=== PATIENT | male | born 1930 | race Caucasian/White ===

== ENCOUNTER 2016-11-11 11:41 | Inpatient (IN) | payer OTHER ==
[2016-11-11] VITALS (10 sets, daily range): BP systolic 108–158; BP diastolic 57–84
[~2016-11-11] VITALS: Ht 170.2 cm; Wt 62.1 kg
[~2016-11-11 11:41] MED LIST: ALBU2.5V7 NEB; AMLO2.5T2 PO; ASPI81TA31 PO; BENZ200C53 PO; FLUT9.9S NS; GUAI600T53 PO; HYDR-3326 PO; IPRA0.2S6 NEB; LOSA50TA3 PO; LOVA10TA PO; Metoprolol Tartrate PO; OMEP20TA20 PO; PYRI60TA PO
--- NOTE | 2016-11-11 11:55 | NUR ---
Code sepsis activated per protocol and Dr. Lenny farooq.
[2016-11-11] MEDS ORDERED: VANCOMYCIN IV 1,000 MG in IV DEXTROSE 5% 250 ML IV ONE (12:00)
[2016-11-11] MEDS ORDERED: IV NORMAL SALINE 1000 ML BAG IV ONE ×2 (12:00→12:15)
[2016-11-11] MEDS ORDERED: LEVOFLOXACIN 750MG/D5W 150 ML IV ONE (12:00)
[2016-11-11] MEDS ORDERED: PIPERACILLIN SODIUM/TAZOBACTAM 3.375 G in IV DEXTROSE 5% 50 ML IV ONE (12:00)
[2016-11-11] MEDS ORDERED: METR500T PO (12:07)
[2016-11-11] MEDS ORDERED: LOVA20TA2 PO (12:07)
[2016-11-11] MEDS ORDERED: CEFP100T9 PO (12:07)
[2016-11-11] MEDS ORDERED: PYRI180T PO (12:07)
[2016-11-11] MEDS ORDERED: ATEN25TA PO (12:07)
[2016-11-11] MEDS ORDERED: OMEP20TA5 PO (12:07)
[2016-11-11] MEDS ORDERED: ACET-2154 PO (12:07)
[2016-11-11] MEDS ORDERED: MYCO500T PO (12:07)
[2016-11-11] MEDS ORDERED: PSYL3.4P6 PO (12:07)
[2016-11-11] MEDS ORDERED: LOSA50TA21 PO (12:07)
[2016-11-11 12:08] LABS: BASOPHILS # (AUTO) 0.1 K/uL (0.0-8.0); BASOPHILS % (AUTO) 1.4 % (0.0-2.0); EOSINOPHILS # (AUTO) 0.1 K/uL (0.0-0.7); EOSINOPHILS % (AUTO) 0.8 % (0.0-7.0); HEMATOCRIT 40.3 % (40-50); HEMOGLOBIN 12.8 G/DL (14.0-18.0); LYMPHOCYTES # (AUTO) 1.7 K/UL (0.8-4.8); LYMPHOCYTES % (AUTO) 17.6 % (20.5-51.5); MEAN CORPUSCULAR HEMOGLOBIN 28.1 UUG (27.0-31.0); MEAN CORPUSCULAR HGB CONC 32 g/dL (32.0-37.0); MEAN CORPUSCULAR VOLUME 88.1 FL (82.0-92.0); MONOCYTES # (AUTO) 0.4 K/UL (0.1-1.30); MONOCYTES % (AUTO) 4.7 % (0.0-11.0); NEUTROPHILS # (AUTO) 7.1 K/UL (1.8-8.9); NEUTROPHILS % (AUTO) 75.5 % (38.5-71.5); PLATELET COUNT (AUTO) 286 K/UL (150-450); RED BLOOD CELL COUNT(AUTO) 4.57 MIL/UL (4.7-6.1); WHITE BLOOD COUNT (AUTO) 9.4 K/UL (4.0-11.2)
[2016-11-11] MEDS ORDERED: PIPERACILLIN/TAZOBACTAM/D5W 50 ML IV ONE (12:14)
[2016-11-11] MEDS ORDERED: VANCOMYCIN IV 200 ML ONE (12:14)
[2016-11-11 12:24] LABS: BAND % (MANUAL) 5 % (0-10); LYMPHOCYTES % (MANUAL) 20 % (20-40); MONOCYTES % (MANUAL) 6 % (2-10); NEUTROPHILS % (MANUAL) 69 % (42-75)
--- NOTE | 2016-11-11 12:30 | NUR ---
PT COUGHING, ER ASSESSED THE PT. NO TX NEEDED AT THIS TIME. COMFORY MEASURE PROVIDED
[2016-11-11 12:32] LABS: CARBON DIOXIDE 30 mmol/L (21-32); CHLORIDE 94 mmol/L (98-107); CREATININE 0.6 mg/dL (0.6-1.3); GLUCOSE 125 mg/dL (74-106); POTASSIUM 3.9 mmol/L (3.5-5.1); UREA NITROGEN, BLOOD 15 mg/dL (7-18)
[2016-11-11] MEDS ORDERED: CLINDAMYCIN PHOSPHATE 900 MG/6 ML VIAL ONE (12:41)
--- NOTE | 2016-11-11 13:43 | NUR ---
PT TRANSFERED TO CCU. PT AT BEDSIDE THE WHOLE ER STAY.
[2016-11-11] MEDS ORDERED: CLINDAMYCIN PHOSPHATE IV 900 MG in IV DEXTROSE 5% 100 ML IV SCH (14:00)
--- NOTE | 2016-11-11 14:30 | NUR ---
ADMIT PT FROM ER VIA [facility] WITH A CHIEF COMPLAINT OF SOB AT REST. PT IS COUGHING A LOT. AWAKE, ALERT, ORIENTED TO NAME AND PLACE. PT IS A LITTLE BIT CONFUSE. HOB ON HIGH FOWLERS. PT ON 100% NON-REBREATHER MASK SATTING AT 92 TO 94%. LUNGS VERY DIMINISHED. PT IS SOMEWHAT RESTLESS AND FIDGITYY. HR- IS SR TO ST NO ECTOPY. NOTIFIED DR SILVERMAN FOR ADMITTING ORDERS.
[2016-11-11] MEDS ORDERED: ONDANSETRON 4 MG/2 ML VIAL IV PRN (16:15)
[2016-11-11] MEDS ORDERED: ALBUTEROL SULFATE 2.5 MG/3 ML NEBU NEB PRN (16:15)
[2016-11-11] MEDS ORDERED: MAGNESIUM HYDROXIDE 30 ML LIQUID UDC PO PRN (16:15)
[2016-11-11] MEDS ORDERED: MYCOPHENOLATE MOFETIL PO SCH (17:00)
--- NOTE | 2016-11-11 17:00 | NUR ---
2D ECHO DONE AT THE BEDSIDE.
--- NOTE | 2016-11-11 18:00 | NUR ---
SEEN AND EXAMINED BY DR BUI WITH NEW ORDERS. ONE LITER OF NS IS STILL INFUSING ON THE RIGHT FA. DECREASED THE RATE DOWN TO 50ML/HR. LAST IV BAG TO RUN.
[2016-11-11] MEDS: LOSARTAN POTASSIUM 50 MG TABLET PO SCH (18:12)
--- NOTE | 2016-11-11 19:00 | NUR ---
NO APPARENT DISTRESS NOTED,
--- NOTE | 2016-11-11 19:30 | NUR ---
Report received. Patient AA but disoriented to place and time. Reoriented. O2 100% NON rebreathing mask. Assessment completed. Patient cooperative. Urine sample obtained and sent to lab for UA and urine culture. Addendum: 11/11/16 at 2136 by RA ALLISON RN Amended: Links added.
[2016-11-11 19:47] LABS: ABG HCO3 25.4 mmol/L; ABG PCO2 31.7 mmHg (35.0-45.0); ABG PH 7.522 (7.350-7.450); ABG PO2 176.5 mmHg (75.0-100.0); ABG SITE LEFT RADIAL; ABG TOTAL HEMOGLOBIN 11.6 G/dL (13.5-18.0); MetHb 0.3 % (0.0-1.5); O2Hb 98.3 % (94.0-97.0)
--- NOTE | 2016-11-11 20:00 | NUR ---
visited. Dr. Abel here. Addendum: 11/11/16 at 2008 by RA ALLISON RN Amended: Links added.
[2016-11-11 20:03] LABS: *BILIRUBIN,URIN NEGATIVE (NEGATIVE); *BLOOD, URINE 2+ (NEGATIVE); *COLOR,URINE YELLOW (YELLOW); *KETONES,URINE NEGATIVE (NEGATIVE); *PROTEIN,URINE 2+ (NEGATIVE); *UROBILINOGEN,URINE 0.2 E.U./dl (NORMAL); LEUKOCYTE ESTERASE ,URINE NEGATIVE (NEGATIVE); NITRITE, URINE NEGATIVE (NEGATIVE); UGLUCOSE NEGATIVE (NEGATIVE)
--- NOTE | 2016-11-11 20:10 | NUR ---
Results of ABGs seen by Dr. Abel. Orders received. O2 changed to 3L NC; Sat above 94%.
--- NOTE | 2016-11-11 20:30 | NUR ---
Able to drink some ensure and ate few slices of peaches; with poor appetite. Coughing productively thick white sputum.
[2016-11-11 20:38] LABS: *CLARITY,URINE SLIGHTLY HAZY (CLEAR); RBC,URINE 50-80 /HPF (0-3)
[2016-11-11 20:39] LABS: MUCUS,URINE FEW /LPF (0-FEW); WBC,URINE 0-3 /HPF (0-3)
[2016-11-11] MEDS ORDERED: GUAIFENESIN/DEXTROMETHORPHAN 5 ML UDC PO PRN ×2 (20:45→21:15)
--- NOTE | 2016-11-11 20:55 | NUR ---
Rapid Influenza nasal swab obtained and sent to lab. Addendum: 11/11/16 at 2101 by RA ALLISON RN Amended: Links added. Addendum: 11/11/16 at 2136 by RA ALLISON RN Amended: Links added.
[2016-11-11] MEDS ORDERED: CEFPODOXIME PROXETIL 200 MG PO SCH (21:00)
[2016-11-11] MEDS ORDERED: Z GUARD REMEDY PASTE 57 GM TUBE TOP PRN (21:00)
[2016-11-11] MEDS: MYCOPHENOLATE MOFETIL 250 MG CAPSULE PO SCH (21:05)
[2016-11-11] MEDS: Z GUARD REMEDY PASTE 57 GM TUBE TOP SCH (21:22)
[2016-11-11] MEDS: AZITHROMYCIN IV 500 MG in IV DEXTROSE 5% 250 ML IV SCH (21:22)
--- NOTE | 2016-11-11 21:25 | NUR ---
No swallowing difficulty but tends to cough every after fluid intake. HOB elevated above 45 degrees at all times.
[2016-11-11] MEDS: METRONIDAZOLE 500 MG TABLET PO SCH (22:27)
[2016-11-11] MEDS: PIPERACILLIN/TAZOBACTAM/D5W 3.375 G in PREMIXED 1 EACH IV SCH (22:27)
--- NOTE | 2016-11-11 23:00 | NUR ---
Patient had coughing spells; unable to expectorate secretions. Suctioned for thick clear to pale baldwin secretions. C/o pain around the Crane catheter. Mildly restless. Advised appropriately. Wants to stand up at side of bed. Assisted. Gait unsteady and weak. Back to bed. Still with generalized discomfort. Medicated with Morphine IV. Addendum: 11/12/16 at 0006 by RA ALLISON RN Amended: Links added.
[2016-11-11] MEDS: MORPHINE SULFATE 2 MG/1 ML DISP.SYRIN IV PRN (23:09)
[2016-11-12] VITALS (19 sets, daily range): BP systolic 90–147; BP diastolic 31–88
--- NOTE | 2016-11-12 01:00 | NUR ---
Patient sleeping at intervals. Awakens very confused and disoriented. Reoriented and advised appropriately. On fall precautions. Addendum: 11/12/16 at 0246 by RA ALLISON RN Amended: Links added. Addendum: 11/12/16 at 0303 by RA ALLISON RN Amended: Links added.
--- NOTE | 2016-11-12 03:00 | NUR ---
Sleeping poorly; confused and calling RN. C/o about the Crane catheter. Patient advised appropriately and monitored closely.
[2016-11-12 05:23] LABS: EOSINOPHILS # (AUTO) 0.1 K/uL (0.0-0.7); EOSINOPHILS % (AUTO) 0.9 % (0.0-7.0); HEMATOCRIT 34.2 % (40-50); HEMOGLOBIN 11.1 G/DL (14.0-18.0); LYMPHOCYTES # (AUTO) 0.9 K/UL (0.8-4.8); LYMPHOCYTES % (AUTO) 9.3 % (20.5-51.5); MEAN CORPUSCULAR HEMOGLOBIN 28.6 UUG (27.0-31.0); MEAN CORPUSCULAR HGB CONC 33 g/dL (32.0-37.0); MONOCYTES # (AUTO) 0.5 K/UL (0.1-1.30); NEUTROPHILS # (AUTO) 8.6 K/UL (1.8-8.9); NEUTROPHILS % (AUTO) 84.8 % (38.5-71.5); PLATELET COUNT (AUTO) 236 K/UL (150-450); RED BLOOD CELL COUNT(AUTO) 3.89 MIL/UL (4.7-6.1); WHITE BLOOD COUNT (AUTO) 10.1 K/UL (4.0-11.2)
[2016-11-12 05:28] LABS: ALANINE AMINOTRANSFERASE 15 U/L (16-63); ALKALINE PHOSPHATASE 47 U/L (50-136); ASPARTATE AMINOTRANSFERASE 15 U/L (15-37); BILIRUBIN,TOTAL 0.8 mg/dL (0.2-1.0); CARBON DIOXIDE 30 mmol/L (21-32); CHLORIDE 94 mmol/L (98-107); CHOLESTEROL 82 mg/dL (<200); CREATININE 0.7 mg/dL (0.6-1.3); GLUCOSE 107 mg/dL (74-106); HDL CHOLESTEROL 60 mg/dL (40-60); MAGNESIUM 1.8 mg/dL (1.8-2.4); PHOSPHOROUS 3.1 mg/dL (2.5-4.9); POTASSIUM 3.7 mmol/L (3.5-5.1); TRIGLYCERIDES 19 MG/DL (30-150); UREA NITROGEN, BLOOD 9 mg/dL (7-18)
[2016-11-12 05:29] LABS: IRON, SERUM 14 ug/dL (50-175)
[2016-11-12] MEDS: METRONIDAZOLE 500 MG TABLET PO SCH ×3 (05:35→22:18)
[2016-11-12] MEDS: ACETAMINOPHEN 325 MG TABLET PO PRN ×2 (05:35→22:28)
[2016-11-12] MEDS: PIPERACILLIN/TAZOBACTAM/D5W 3.375 G in PREMIXED 1 EACH IV SCH ×3 (05:35→22:18)
--- NOTE | 2016-11-12 05:35 | NUR ---
Still c/o mild pain from Crane catheter. Medicated with Tylenol po. Still coughs every after po medications. On aspiration precautions. HOB elevated above 30 degrees at all times.
[2016-11-12 05:42] LABS: THYROID STIMULATING HORMONE 0.661 mIU/mL (0.358-3.740)
[2016-11-12] MEDS ORDERED: PANTOPRAZOLE SODIUM 40 MG TABLET.DR PO SCH (07:00)
--- NOTE | 2016-11-12 07:00 | NUR ---
VS stable. NAD noted.
--- NOTE | 2016-11-12 07:45 | NUR ---
RECIEVED PT LYING IN BED, AWAKE, ALERT AND ORIENTEDX3 BUT VERY FORGETFUL. NO APPARENT DISTRESS NOTED. O2 DOWN TO 3LNC AAND SATURATING AT 97-100%. PT REMAIN ON BEDREST. DENIES ANY C/ DISCOMFORTS.
[2016-11-12] MEDS: MYCOPHENOLATE MOFETIL 250 MG CAPSULE PO SCH ×2 (08:37→20:42)
[2016-11-12] MEDS: Z GUARD REMEDY PASTE 57 GM TUBE TOP SCH ×2 (08:37→20:41)
[2016-11-12] MEDS ORDERED: PYRIDOSTIGMINE 180 MG PO SCH (09:00)
[2016-11-12] MEDS ORDERED: PYRIDOSTIGMINE BROMIDE 180 MG PO SCH (09:00)
--- NOTE | 2016-11-12 09:00 | NUR ---
DR FLORES MADE AWARE THAT PT IS COUGHING A LOT WHEN SWALLOWING FOOD OR LIQUIDS. MAY RECOMMEND FOR A SWALLOW EVALUATION.
--- NOTE | 2016-11-12 10:30 | NUR ---
PT EVALUATION AT THE BEDSIDE DONE. PT SAT UP ON THE CHAIR FOR 30MIN AND TOLERATED WELL. NO C/O DIZZINESS.
[2016-11-12] MEDS ORDERED: VANCOMYCIN IV 1 G in PREMIXED 0 EACH IV SCH (11:00)
--- NOTE | 2016-11-12 12:41 | NUR ---
Clinical Pharmacy Note: Vancomycin Dosing per Pharmacy Subjective: Vancomycin IV to start on this 86 y/o male for PNA (no MD notes yet) Patient received vancomycin 1gm IVPB in ED on 11/11 at 1300 wt 137 lb ht 5' 7'' Objective: BUN 9 Scr 0.7 WBC 10.1 Temperature 98 Assessment/Plan: Will start vancomycin 1gm IVPB q22hrs for expected trough of 16 mcg/ml at steady state. Second dose is due today at 1100. Will order trough before 4th scheduled dose (not yet ordered). Will follow daily
--- NOTE | 2016-11-12 14:00 | NUR ---
SEEN AND EXAMINED BY DR [place] WITH NEW ORDERS.
--- NOTE | 2016-11-12 15:30 | NUR ---
SEEN AND EXAMINED BY DR HURT.
--- NOTE | 2016-11-12 16:30 | NUR ---
Faxed the patient's information to [facility] [ ; ] to the attention of Jasmin HILL. They will review his chart and will call the unit once they have a bed available. Spoke to the patient and his , Frankie [ ], about the possible transfer and they understand. [facility] will be providing the transportation. Updated his RN, Sandrine.
--- NOTE | 2016-11-12 17:30 | NUR ---
SEEN AND EXAMINED BY DR BUI, NO ORDERS MADE. PT ATE DINNER ASSISTED BY HIS , LESS COUGHING THIS TIME. PT IS STARTING TO BE RESTLESS AND C/O PAIN AND DISCOMFORTS OF THE ALVARENGA. STARTING TO PULL OUT THE CATHETER AND BECOMING SUNDOWNER CONFUSE. MEDICATED WITH MORPHINE 2MG SLOW IVP ORDERED.
[2016-11-12] MEDS: LOSARTAN POTASSIUM 50 MG TABLET PO SCH (17:34)
[2016-11-12] MEDS: MORPHINE SULFATE 2 MG/1 ML DISP.SYRIN IV PRN (17:35)
--- NOTE | 2016-11-12 18:20 | NUR ---
PT MELLOWED DOWN A LITTLE. POSSIBLY WILL BE TRANSFERRED TO [facility]. CONDITION IS STABLE.
--- NOTE | 2016-11-12 19:30 | NUR ---
Report received. Patient with pending transfer to [facility]; awaiting for bed availability. AA, confused and disoriented. Reoriented PRN. NAD noted. O2 @ 2 L NC; sat above 94%. Addendum: 11/12/16 at 2333 by RA ALLISON RN Amended: Links added.
--- NOTE | 2016-11-12 20:00 | NUR ---
visited; updated of patient's condition. Aware of pending transfer. Addendum: 11/12/16 at 2335 by RA ALLISON RN Amended: Links added. Addendum: 11/12/16 at 2337 by RA ALLISON RN Amended: Links added. Addendum: 11/12/16 at 2339 by RA ALLISON RN Amended: Links added.
[2016-11-12] MEDS: AZITHROMYCIN IV 500 MG in IV DEXTROSE 5% 250 ML IV SCH (20:41)
--- NOTE | 2016-11-12 21:00 | NUR ---
Patient very forgetful; asking same questions over and over. Reoriented PRN. On fall precautions. Addendum: 11/12/16 at 2337 by RA ALLISON RN Amended: Links added. Addendum: 11/12/16 at 2339 by RA ALLISON RN Amended: Links added.
--- NOTE | 2016-11-12 22:00 | NUR ---
Remains confused. Trying to get out of bed. Advised appropriately. PM care rendered. Monitored closely. Addendum: 11/12/16 at 2339 by RA ALLISON RN Amended: Links added.
--- NOTE | 2016-11-12 22:28 | NUR ---
Still confused and c/o mild pain from Crane catheter. Tylenol po given.
[2016-11-13] VITALS: BP 130/78
--- NOTE | 2016-11-13 | NUR ---
Sleeping at intervals. Still confused, fidgety when awake.
--- NOTE | 2016-11-13 00:20 | NUR ---
[facility] transport here. Unaware of patient's apple picker. It Support Consultant notified. Spoke to Curt at [facility]. Claimed that patient is going to Telemetry [id number] A.
[2016-11-13 01:00] VITALS: BP 127/68
--- NOTE | 2016-11-13 01:00 | NUR ---
Report given to Jo Purcell RN. Belonging list completed.
--- NOTE | 2016-11-13 01:20 | NUR ---
Patient confused and pulled out RFA Saline lock. Reoriented.
--- NOTE | 2016-11-13 01:30 | NUR ---
Patient's Frankie notified of transfer. Informed that medication bag with Mestinon tabs given to Deanne of [facility] transport services.
--- NOTE | 2016-11-13 01:32 | NUR ---
Necessary paper work, consent and CD given to transport team upon transfer.
--- NOTE | 2016-11-13 01:35 | NUR ---
DC to [facility] by paramedics ambulance. Managing Partner aware.
[2016-11-13] MEDS ORDERED: ASPIRIN 81 MG TAB.CHEW PO SCH (09:00)
== END 2016-11-13 01:30 | DRG 177 ==
LOC: ER 11:45 → CCU 13:28
PROVIDERS: ADMIT Internal Medicine; ATTEND Internal Medicine
DX: J69.0 Pneumonitis due to inhalation of food and vomit (principal); J96.01 Acute respiratory failure with hypoxia; E43 Unspecified severe protein-calorie malnutrition; I21.4 Non-ST elevation (NSTEMI) myocardial infarction; J44.0 Chronic obstructive pulmonary disease with (acute) lower respiratory infection; D68.59 Other primary thrombophilia; K50.90 Crohn's disease, unspecified, without complications; E87.1 Hypo-osmolality and hyponatremia; J98.11 Atelectasis; J44.1 Chronic obstructive pulmonary disease with (acute) exacerbation; I50.32 Chronic diastolic (congestive) heart failure; G70.00 Myasthenia gravis without (acute) exacerbation; I25.2 Old myocardial infarction; K21.9 Gastro-esophageal reflux disease without esophagitis; Z95.1 Presence of aortocoronary bypass graft; I25.10 Atherosclerotic heart disease of native coronary artery without angina pectoris; F03.90 Unspecified dementia, unspecified severity, without behavioral disturbance, psychotic disturbance, mood disturbance, and anxiety; E78.5 Hyperlipidemia, unspecified; D64.9 Anemia, unspecified; H43.819 Vitreous degeneration, unspecified eye; I71.4 Abdominal aortic aneurysm, without rupture; J31.0 Chronic rhinitis; K43.9 Ventral hernia without obstruction or gangrene; Z88.1 Allergy status to other antibiotic agents; Z88.8 Allergy status to other drugs, medicaments and biological substances; R13.10 Dysphagia, unspecified; Z87.891 Personal history of nicotine dependence; I71.9 Aortic aneurysm of unspecified site, without rupture; K59.00 Constipation, unspecified; Z74.09 Other reduced mobility; R29.6 Repeated falls; R26.9 Unspecified abnormalities of gait and mobility; N40.0 Benign prostatic hyperplasia without lower urinary tract symptoms; I73.9 Peripheral vascular disease, unspecified; C61 Malignant neoplasm of prostate
CPT/HCPCS: 36415; 36600; 70030-TC; 71010; 83550; 83605; 83735; 84100; 84153; 84443; 85025; 87040; 87070; 87086; 87400; 93005; 93307; 97161; A4663; J0456; J2270; J2543; J3370; J3490; J7030; J7050; J7060; J7517